=== PATIENT | male | born 1990 | race Caucasian/White ===

== ENCOUNTER 2019-03-07 21:33 | Emergency (ER) | payer SELFPAY ==
[~2019-03-07] VITALS: Ht 170.2 cm; Wt 83.9 kg
[2019-03-07 21:57] VITALS: BP_SYST 139
--- NOTE | 2019-03-07 21:59 | NUR ---
Patient to ER [facility] to gon for evaluation. Side rails up.
--- NOTE | 2019-03-07 22:05 | NUR ---
ER Dr. Madison at bedside examining patient.
--- NOTE | 2019-03-07 22:10 | NUR ---
Pt came to the ED for medical clearance with hx of asthma. Pt reports intermittent SOB which lasted about 3-5 minutes. Denies SOB in ED. Per PD, pt has a felony warrant. Denies chest pain, n/v/d or fever. No other complaints/injuries noted. Will cont. to monitor.
[2019-03-07] MEDS ORDERED: ALBUTEROL SULFATE 0.083% 2.5 MG/3 ML VIAL.NEB INH ONE (22:15)
--- NOTE | 2019-03-07 22:18 | NUR ---
RT giving pt a breathing tx per MD order. Tolerating well. Will cont. to monitor.
[2019-03-07 22:33] VITALS: BP_SYST 129
--- NOTE | 2019-03-07 23:15 | NUR ---
Patient given written and verbal discharge instructions and verbalizes understanding. ER MD discussed with patient the results and treatment provided. Patient in stable condition. ID arm band removed. No Rx given. Patient educated on pain management and to follow up with PMD. Pain Scale 0. Opportunity for questions provided and answered. Medication side effect fact sheet provided. Accompanied by SIXTO
== END 2019-03-07 22:33 ==
LOC: SED 21:33
DX: J45.909 Unspecified asthma, uncomplicated (principal); F12.90 Cannabis use, unspecified, uncomplicated; F17.210 Nicotine dependence, cigarettes, uncomplicated
CPT/HCPCS: 94640; 99283; J7613